=== PATIENT | male | born 1980 | race Caucasian/White ===

== ENCOUNTER 2017-08-29 16:12 | Emergency (ER) | payer OTHER | END 2017-08-29 18:47 | disposition left against medical advice (07) | LOC: ER 16:13 | DX: Z00.8 Encounter for other general examination (principal); Z53.21 Procedure and treatment not carried out due to patient leaving prior to being seen by health care provider ==

== ENCOUNTER 2017-11-16 18:35 | Emergency (ER) | payer MEDICAID, OTHER ==
[~2017-11-16] VITALS: Ht 182.9 cm; Wt 47.3 kg
[2017-11-16 19:05] VITALS: BP 134/77
[2017-11-16] MEDS ORDERED: CEPH500C5 PO (21:14)
== END 2017-11-16 21:17 | disposition home or self-care (01) ==
LOC: ER 18:36
DX: L03.012 Cellulitis of left finger (principal); K02.9 Dental caries, unspecified; R13.10 Dysphagia, unspecified; J44.9 Chronic obstructive pulmonary disease, unspecified; F17.200 Nicotine dependence, unspecified, uncomplicated; Z88.0 Allergy status to penicillin
CPT/HCPCS: 99283

== ENCOUNTER 2018-04-30 14:46 | Emergency (ER) | payer MEDICAID ==
[~2018-04-30] VITALS: Ht 180.3 cm; Wt 64.5 kg
[~2018-04-30 14:46] MED LIST: CEPH500C5 PO
[2018-04-30 14:51] VITALS: BP 132/78
[2018-04-30] MEDS ORDERED: predniSONE 20 mg tablet PO ONE (15:00)
[2018-04-30] MEDS ORDERED: ipratropium/albuterol 3ml nebule NEB ONE (15:00)
[2018-04-30] MEDS ORDERED: albuterol 2.5 MG/3 ML nebule NEB ONE (15:00)
[2018-04-30] MEDS ORDERED: PRED20TA PO (15:39)
[2018-04-30] MEDS ORDERED: AZIT250T2 PO (15:39)
[2018-04-30] MEDS ORDERED: ALBU18HF2 INH (15:39)
== END 2018-04-30 15:55 | disposition home or self-care (01) ==
LOC: ER 14:47
DX: J44.9 Chronic obstructive pulmonary disease, unspecified (principal); J20.9 Acute bronchitis, unspecified; F17.200 Nicotine dependence, unspecified, uncomplicated; F12.90 Cannabis use, unspecified, uncomplicated; Z88.0 Allergy status to penicillin; Z79.2 Long term (current) use of antibiotics
CPT/HCPCS: 71045; 94640; 94760; 99284; J7512

== ENCOUNTER 2018-06-26 09:10 | Emergency (ER) | payer MEDICAID ==
[~2018-06-26] VITALS: Ht 180.3 cm; Wt 62.0 kg
[~2018-06-26 09:10] MED LIST changes: +ALBU18HF2 INH; +KEN0.1O TP
[2018-06-26 09:26] VITALS: BP 118/76
== END 2018-06-26 11:05 | disposition left against medical advice (07) ==
LOC: ER 09:10
DX: M79.662 Pain in left lower leg (principal); R10.9 Unspecified abdominal pain; Z53.21 Procedure and treatment not carried out due to patient leaving prior to being seen by health care provider

== ENCOUNTER 2018-12-18 23:30 | Emergency (ER) | payer MEDICAID ==
[~2018-12-18] VITALS: Ht 180.3 cm; Wt 62.4 kg
[~2018-12-18 23:30] MED LIST changes: -CEPH500C5 PO; -KEN0.1O TP
[2018-12-18 23:37] VITALS: BP 135/87
[2018-12-18] MEDS ORDERED: SULF1TAB49 PO (23:55)
== END 2018-12-19 00:36 | disposition home or self-care (01) ==
LOC: ER 23:30
DX: L03.115 Cellulitis of right lower limb (principal); J44.9 Chronic obstructive pulmonary disease, unspecified; F12.90 Cannabis use, unspecified, uncomplicated; Z88.0 Allergy status to penicillin; Z79.899 Other long term (current) drug therapy
CPT/HCPCS: 99283

== ENCOUNTER 2018-12-22 01:02 | Emergency (ER) | payer MEDICAID ==
[~2018-12-22] VITALS: Ht 180.3 cm; Wt 63.6 kg
[~2018-12-22 01:02] MED LIST changes: +SULF1TAB49 PO
[2018-12-22] MEDS ORDERED: LIDOcaine 1% w/epiNEPHrine 1:200,000 30ml vial IM ONE (01:15)
[2018-12-22] MEDS ORDERED: TETanus/Pertussis (Acell)/Diphther VAC/PF (Tdap-Adult) 0.5ml syringe IM ONE (01:15)
[2018-12-22] MEDS ORDERED: sulfamethoxazole/trimethoprim DS (800/160mg) tablet PO ONE (01:25)
[2018-12-22] MEDS ORDERED: SULF1TAB49 PO (01:31)
[2018-12-22 02:03] VITALS: BP 123/89
== END 2018-12-22 02:05 | disposition home or self-care (01) ==
LOC: ER 01:02
DX: L02.415 Cutaneous abscess of right lower limb (principal); L03.115 Cellulitis of right lower limb; J44.9 Chronic obstructive pulmonary disease, unspecified; F12.90 Cannabis use, unspecified, uncomplicated; Z59.0 Homelessness; Z88.0 Allergy status to penicillin; Z79.899 Other long term (current) drug therapy
CPT/HCPCS: 10060; 90715; 99283; J3490

== ENCOUNTER 2018-12-28 23:07 | Emergency (ER) | payer MEDICAID ==
[~2018-12-28] VITALS: Ht 180.3 cm; Wt 65.9 kg
[2018-12-28 23:27] VITALS: BP 129/83
[2018-12-28] MEDS ORDERED: DOXY100C43 PO (23:52)
== END 2018-12-29 00:05 | disposition home or self-care (01) ==
LOC: ER 23:08
DX: L02.415 Cutaneous abscess of right lower limb (principal); J44.9 Chronic obstructive pulmonary disease, unspecified; F12.90 Cannabis use, unspecified, uncomplicated; Z60.2 Problems related to living alone; Z59.0 Homelessness; Z79.899 Other long term (current) drug therapy; Z88.0 Allergy status to penicillin
CPT/HCPCS: 99284

== ENCOUNTER 2019-04-28 15:44 | Emergency (ER) | payer MEDICAID ==
[~2019-04-28] VITALS: Ht 180.3 cm; Wt 61.0 kg
[~2019-04-28 15:44] MED LIST changes: -SULF1TAB49 PO
[2019-04-28 16:19] VITALS: BP 144/85
== END 2019-04-28 19:35 | disposition left against medical advice (07) ==
LOC: ER 15:45
DX: J00 Acute nasopharyngitis [common cold] (principal); Z53.21 Procedure and treatment not carried out due to patient leaving prior to being seen by health care provider

== ENCOUNTER 2019-06-08 12:35 | Emergency (ER) | payer MEDICAID ==
[~2019-06-08] VITALS: Ht 180.3 cm; Wt 64.7 kg
[2019-06-08 12:50] VITALS: BP 139/82
[2019-06-08] MEDS ORDERED: KEN0.1O TP (14:23)
== END 2019-06-08 15:13 | disposition home or self-care (01) ==
LOC: ER 12:36
DX: L30.9 Dermatitis, unspecified (principal); J44.9 Chronic obstructive pulmonary disease, unspecified; F12.90 Cannabis use, unspecified, uncomplicated; Z60.2 Problems related to living alone; Z59.0 Homelessness; Z87.891 Personal history of nicotine dependence; Z88.0 Allergy status to penicillin; Z79.899 Other long term (current) drug therapy
CPT/HCPCS: 99283

== ENCOUNTER 2019-07-12 12:12 | Emergency (ER) | payer MEDICAID ==
[~2019-07-12] VITALS: Ht 180.3 cm; Wt 65.9 kg
[2019-07-12 12:36] VITALS: BP 136/87
[2019-07-12] MEDS ORDERED: BENZ-16 PO (13:06)
[2019-07-12] MEDS ORDERED: AZIT250T PO (13:06)
== END 2019-07-12 13:38 | disposition home or self-care (01) ==
LOC: ER 12:13
DX: J06.9 Acute upper respiratory infection, unspecified (principal); F17.210 Nicotine dependence, cigarettes, uncomplicated; J44.9 Chronic obstructive pulmonary disease, unspecified; F12.90 Cannabis use, unspecified, uncomplicated; Z71.6 Tobacco abuse counseling; Z60.2 Problems related to living alone; Z59.0 Homelessness; Z88.0 Allergy status to penicillin; Z79.899 Other long term (current) drug therapy
CPT/HCPCS: 99283; 99406

== ENCOUNTER 2019-09-12 11:29 | Emergency (ER) | payer MEDICAID ==
[~2019-09-12] VITALS: Ht 180.3 cm; Wt 66.6 kg
[~2019-09-12 11:29] MED LIST changes: +AZIT250T PO
[2019-09-12 12:32] LABS: BASOPHILS % (AUTO) 0.3 % (0-1); EOSINOPHILS # (AUTO) 0.6 X10'3 (0-0.9); EOSINOPHILS % (AUTO) 4.7 % (0-6); HEMATOCRIT 40.5 % (42.0-52.0); HEMOGLOBIN 13.4 g/dl (14.0-17.9); LYMPHOCYTES # (AUTO) 1.8 X10'3 (1.1-4.8); LYMPHOCYTES % (AUTO) 13.1 % (21-51); MEAN CORPUSCULAR HEMOGLOBIN 28.7 PG (27.0-31.0); MEAN CORPUSCULAR HGB CONC 33.1 g/dL (33.0-36.5); MEAN CORPUSCULAR VOLUME 86.7 FL (78-98); MEAN PLATELET VOLUME 7.1 FL (7.4-10.4); MONOCYTES # (AUTO) 0.8 X10'3 (0-0.9); MONOCYTES % (AUTO) 5.7 % (2-12); NEUTROPHILS # (AUTO) 10.2 X10'3 (1.8-7.7); NEUTROPHILS % (AUTO) 76.2 % (42-75); PLATELET COUNT 452 X10'3 (140-440); RED BLOOD COUNT 4.67 X10'6 (4.70-6.10); RED CELL DISTRIBUTION WIDTH 14.2 % (11.5-14.5); WHITE BLOOD COUNT 13.4 X10'3 (4.5-11.0)
[2019-09-12 12:48] LABS: ALANINE AMINOTRANSFERASE 19 U/L (12-78); ALBUMIN 3.5 G/DL (3.4-5.0); ALBUMIN/GLOBULIN RATIO 0.9 (1.1-1.5); ALKALINE PHOSPHATASE 139 IU/L (46-116); ANION GAP 5 (8-16); ASPARTATE AMINO TRANSFERASE 12 U/L (10-37); BILIRUBIN,TOTAL 0.2 MG/DL (0.1-1.0); BLOOD UREA NITROGEN 13 MG/DL (7-18); BUN/CREATININE RATIO 14.6 (5.4-32.0); CALCIUM 8.8 MG/DL (8.5-10.1); CHLORIDE 104 MMOL/L (99-107); CREATININE 0.89 MG/DL (0.60-1.10); GLUCOSE 101 MG/DL (70-104); LIPASE 88 U/L (73-393); POTASSIUM 4.1 MMOL/L (3.5-5.1); SODIUM 139 MMOL/L (135-145); TOTAL CARBON DIOXIDE 30.3 MMOL/L (24-32); TOTAL PROTEIN 7.4 G/DL (6.4-8.2); eGFR > 90 ML/MIN
[2019-09-12 13:48] LABS: CLARITY,URINE CLEAR (Clear); COLOR,URINE YELLOW (Yellow); GLUCOSE, URINE NEGATIVE (Neg); KETONES,URINE NEGATIVE (Neg); LEUKOCYTE ESTERASE ,URINE NEGATIVE (Neg); NITRITES, URINE NEGATIVE (Neg); OCCULT BLOOD,URINE NEGATIVE (Neg); PROTEIN,URINE NEGATIVE (Neg); UROBILINOGEN,URINE 0.2 E.U/dL (0.2-1.0)
[2019-09-12 13:51] LABS: UA COLLECTION TYPE CLN CATCH MIDSTREAM
[2019-09-12 13:52] VITALS: BP 144/68
[2019-09-12] MEDS ORDERED: mupirocin 2% cream 15gm TP SCH (14:05)
[2019-09-12] MEDS ORDERED: normal saline 1000ML IV soln IVB ONE (14:05)
[2019-09-12] MEDS ORDERED: loperamide 2mg capsule PO ONE (14:05)
[2019-09-12] MEDS ORDERED: ondansetron/PF 4mg/2ml inj IV ONE (14:05)
[2019-09-12] MEDS ORDERED: pantoprazole 40 MG vial IV ONE (14:05)
[2019-09-12] MEDS ORDERED: PANT-47 PO (14:08)
[2019-09-12] MEDS ORDERED: mupirocin 2% ointment 22GM TP ONE (14:40)
== END 2019-09-12 15:08 | disposition home or self-care (01) ==
LOC: ER 11:30
DX: K52.9 Noninfective gastroenteritis and colitis, unspecified (principal); L03.116 Cellulitis of left lower limb; J44.9 Chronic obstructive pulmonary disease, unspecified; F12.90 Cannabis use, unspecified, uncomplicated; Z60.2 Problems related to living alone; Z87.891 Personal history of nicotine dependence; Z88.0 Allergy status to penicillin; Z79.899 Other long term (current) drug therapy
CPT/HCPCS: 36415; 80053; 81003; 83690; 85025; 99283

== ENCOUNTER 2020-10-22 13:54 | Emergency (ER) | payer MEDICAID ==
[~2020-10-22] VITALS: Ht 180.3 cm; Wt 45.0 kg
[~2020-10-22 13:54] MED LIST changes: +PANT-47 PO
[2020-10-22 14:10] VITALS: BP 149/98
[2020-10-22] MEDS ORDERED: CefTRIAXone 1000mg IM Kit (w/lidocaine diluent) IM ONE (14:45)
[2020-10-22] MEDS ORDERED: DOXY100C77 PO (15:18)
[2020-10-22 15:19] LABS: CLARITY,URINE SLIGHTLY CLOUDY (Clear); COLOR,URINE YELLOW (Yellow); GLUCOSE, URINE NEGATIVE (Neg); KETONES,URINE NEGATIVE (Neg); LEUKOCYTE ESTERASE ,URINE TRACE (Neg); NITRITES, URINE NEGATIVE (Neg); OCCULT BLOOD,URINE NEGATIVE (Neg); PH,URINE 5.5 (4.8-8.0); PROTEIN,URINE TRACE mg/dl (Neg); UROBILINOGEN,URINE 0.2 E.U/dL (0.2-1.0)
[2020-10-22 15:22] LABS: UA COLLECTION TYPE VOIDED
[2020-10-22 15:24] LABS: WBC,URINE 30-50 /HPF (0-4)
[2020-10-22 15:25] LABS: BACTERIA,URINE 1+ /HPF (Neg); MUCUS STRANDS MODERATE /LPF (Neg); RBC,URINE NONE SEEN /HPF (0-2); SPERM FEW /HPF (NEGATIVE); SQUAMOUS EPITHELIAL CELL,UR FEW /LPF (FEW)
== END 2020-10-22 16:19 | disposition home or self-care (01) ==
LOC: ER 13:55
DX: R30.0 Dysuria (principal); R30.9 Painful micturition, unspecified; L40.9 Psoriasis, unspecified; J44.9 Chronic obstructive pulmonary disease, unspecified; F12.90 Cannabis use, unspecified, uncomplicated; Z60.2 Problems related to living alone; Z88.0 Allergy status to penicillin; Z79.2 Long term (current) use of antibiotics; Z79.899 Other long term (current) drug therapy
CPT/HCPCS: 36415; 81001; 87088; 87491; 87591; 96372; 99283; J0696